=== PATIENT | female | born 2005 | race Caucasian/White ===

== ENCOUNTER 2024-01-03 08:55 | Day surgery (SDC) | payer BC ==
[~2024-01-03] VITALS: Ht 174 cm; Wt 108.5 kg
[~2024-01-03 08:55] MED LIST: ALL10TAB3 PO; BUSP1TAB PO; DESV25TA PO
[2024-01-03] MEDS: NS 1,000 ML IV ONE (10:15)
[2024-01-03] MEDS ORDERED: LIDOCAINE 2% 100MG/5ML SDV (FOR ANES.) As Ordered ONE (10:29)
[2024-01-03] MEDS ORDERED: propofoL 500 MG/50 ML VIAL As Ordered ONE (10:30)
[2024-01-03] MEDS ORDERED: fentaNYL 100 MCG/2 ML INJECTION As Ordered ONE (10:30)
[2024-01-03] MEDS ORDERED: propofoL 200 MG/20 ML VIAL As Ordered ONE (11:23)
[2024-01-03 11:35] VITALS: TEMP 97.4
[2024-01-03 11:58] VITALS: BP 139/73; O2SAT 99
== END 2024-01-03 11:59 | disposition home or self-care (01) ==
LOC: M OPP 08:55
PROVIDERS: ATTEND Internal Medicine Gastroenterology
DX: R10.84 Generalized abdominal pain (principal); K29.70 Gastritis, unspecified, without bleeding; R19.4 Change in bowel habit; R11.2 Nausea with vomiting, unspecified; R12 Heartburn; J45.909 Unspecified asthma, uncomplicated; F41.9 Anxiety disorder, unspecified; F32.A Depression, unspecified; Z79.899 Other long term (current) drug therapy; F17.290 Nicotine dependence, other tobacco product, uncomplicated
CPT/HCPCS: 43239; 45380; 88305; J3010